=== PATIENT | male | born 1980 | race African-American/Black ===

== ENCOUNTER 2021-05-14 16:07 | Emergency (ER) | payer MEDICAID, OTHER ==
[~2021-05-14] VITALS: Ht 177.8 cm; Wt 75.0 kg
[2021-05-14 16:39] VITALS: BP 118/76
[2021-05-14] MEDS ORDERED: BACITRACIN ZINC OINT UDPKT TOP ONE (17:45)
[2021-05-14] MEDS ORDERED: TETANUS, DIPHTHERIA, PERTUSSIS VAC/PF 0.5ML (>7YR OLD) IM ONE (17:45)
[2021-05-14] MEDS ORDERED: IBUP-2028 MT (17:47)
== END 2021-05-14 18:33 | disposition home or self-care (01) ==
LOC: ER 16:07
DX: M25.552 Pain in left hip (principal)
CPT/HCPCS: 73502; 90471; 90715; 99283